=== PATIENT | male | born 1970 | race Caucasian/White ===

== ENCOUNTER 2024-07-15 08:51 | Outpatient (CLI) | payer OTHER, SELFPAY ==
--- NOTE | 2024-07-15 09:03 | XR_ITS ---
WS: [id number] XR shoulder LT min 2V* [id number] REASON FOR EXAM: PAIN IN LEFT SHOULDER FINDINGS: No fracture or focal bone lesion. Mild narrowing of the acromioclavicular joint space with significant superior marginal osteophytosis. The glenohumeral joint space is not well demonstrated but likely has moderate to significant narrowing. There is moderate subchondral sclerosis and osteophytosis of the glenoid. No significant abnormality in the greater biceps tuberosity or humeral head. XR/XR shoulder LT min 2V* [id number] IMPRESSION: Moderate to significant osteoarthritis in the acromioclavicular joint and gleno humeral joint.
== END 2024-07-15 08:52 | disposition home or self-care (01) ==
PROVIDERS: Family Provider Family Medicine; PCP Family Medicine; Visit Provider Family Medicine
DX: M19.012 Primary osteoarthritis, left shoulder (principal); M25.712 Osteophyte, left shoulder
CPT/HCPCS: 73030

== ENCOUNTER → 2024-08-12 11:52 | Outpatient (BNVA) | payer OTHER, SELFPAY | PROVIDERS: Family Provider Family Medicine; PCP Family Medicine; Visit Provider Nurse Practitioner | DX: M19.012 Primary osteoarthritis, left shoulder (principal); M54.12 Radiculopathy, cervical region; M75.102 Unspecified rotator cuff tear or rupture of left shoulder, not specified as traumatic | CPT/HCPCS: 73030 ==

== ENCOUNTER 2024-08-23 18:02 | Emergency (ER) | payer OTHER, SELFPAY ==
[2024-08-23 18:07] VITALS: BP 133/88; PULSE 86; RESP 16; TEMP 36.6; O2SAT 99
--- NOTE | 2024-08-23 20:01 | CTR_ITS ---
PROCEDURE INFORMATION: Exam: CT Cervical Spine Without Contrast Exam date and time: 08/23/2024 8:14 PM Age: 54 years old Clinical indication: Neck pain; Additional info: Radiculopathy, painful neck movt TECHNIQUE: Imaging protocol: Computed tomography of the cervical spine without contrast. Radiation optimization: All CT scans at this facility use at least one of these dose optimization techniques: automated exposure control; mA and/or kV adjustment per patient size (includes targeted exams where dose is matched to clinical indication); or iterative reconstruction. COMPARISON: CR XR shoulder LT min 2V* [id number] 08/12/2024 11:54 AM RADIATION DOSE METRICS: Total DLP (mGy-cm): 161.57 FINDINGS: Bones: Vertebral body spurring can be seen at multiple levels. There is a prominent central disc herniation at the C4-C5 level. No other definite spinal stenosis noted. No fracture or subluxation. Lungs: Lung apices are normal. Soft tissues: Unremarkable. CT/CT cervical spin wo con* [id number] IMPRESSION: 1. Central disc herniation at C4-C5 2. Multilevel arthritic changes
[2024-08-23] MEDS: ketorolac 30 mg/mL INJ IM (20:20)
--- NOTE | 2024-08-23 20:24 | W.ED.NECK ---
HPI - Neck Pain/Injury General: Chief Complaint: Neck Pain/Injury Stated Complaint: neck pain Time Seen by Provider: 08/23/24 19:30 Source: patient Mode of arrival: ambulatory Limitations: no limitations History of Present Illness: 54yo male presents with significant other for evaluation of neck pain that has been ongoing for the past several months. Patient reports the pain radiates from the back of his neck through his shoulder blade area and down the left arm. States that it radiates to the fingers. Reports that he now has difficulty moving his neck due to the pain. Patient states that he was seen by his primary care who put a referral in for his shoulder, but not for his neck. He did see orthopedics for the shoulder, but no one for his neck. States he went to [facility] last night where he received a shot of Toradol and morphine. States the doctor stated that he needed an MRI, but they were not able to complete an MRI. Patient states that he is no longer able to work or drive due to his limited movement. He denies previous imaging of the cervical spine, previous neck or back surgeries, recent trauma. Related Data Home Medications ?Medication ?Instructions ?Recorded ?Confirmed atorvastatin 10 mg tablet (Lipitor) 10 mg PO DAILY 08/12/24 08/12/24 metformin 500 mg/5 mL oral solution 500 mg PO BID 08/12/24 08/12/24 Previous Rx's ?Medication ?Instructions ?Recorded celecoxib 100 mg capsule (Celebrex) 100 mg PO BID #90 caps 08/12/24 Allergies Allergy/AdvReac Type Severity Reaction Status Date / Time No Known Allergies Allergy Unverified 08/12/24 12:00 Review of Systems Const: Denies: fever(s), chills or body aches Card: Denies: chest pain Resp: Denies: dyspnea Musc: Reports: neck pain (left sided) PFS ED PFSH: Medical History (Updated 08/23/24 @ 21:02 by EKATERINA Page) Cervical radiculopathy Osteoarthritis of left acromioclavicular joint Rotator cuff tear arthropathy of left shoulder Primary osteoarthritis, left shoulder Social History Smoking and tobacco/nicotine status: former use of tobacco/nicotine Physical Exam Const: COMMON NORMALS: no acute distress, patient oriented x3 and alert GENERAL APPEARANCE: cooperative ORIENTATION/CONSCIOUSNESS: Yes awake OTHER: Patient is sitting upright in a vertical flow recliner in no acute distress. He is able to give history with assistance from significant other. He is interactive with exam appropriately. HENMT: COMMON NORMALS: normocephalic and atraumatic HEAD & SCALP: normocephalic and atraumatic Neck/C-Spine: COMMON NORMALS: no meningeal signs CERVICAL SPINE: Yes pain with cervical ROM, No Cervical spine tenderness, No step off deformity, Yes Paracervical muscle tenderness left and Yes Trapezius muscle tenderness left NECK IMAGES:  1. tenderness to palpation Chest: CHEST: Yes Symmetrical chest wall rise Resp: COMMON NORMALS: normal respiratory effort EFFORT & INSPECTION: Yes able to speak in complete sentences Extremity: COMMON NORMALS: full ROM Neuro: COMMON NORMALS: patient oriented x3 SENSORIUM/ORIENTATION: Yes alert MENINGEAL SIGNS: Yes no meningeal signs Psych: ATTITUDE: Yes calm Course Vital Signs: Vital signs: Vital Signs Temperature 97.9 F 08/23/24 18:07 Pulse Rate 86 08/23/24 18:07 Respiratory Rate 16 08/23/24 18:07 Blood Pressure 133/88 08/23/24 18:07 Pulse Oximetry 99 08/23/24 18:07 Oxygen Delivery Me thod Room Air 08/23/24 18:07 MDM - Neck Pain/Injury Medical Decision Making 54yo male presents with significant other for evaluation of neck pain that has been ongoing for the past several months. Patient reports the pain radiates from the back of his neck through his shoulder blade area and down the left arm. States that it radiates to the fingers. Reports that he now has difficulty moving his neck due to the pain. Patient states that he was seen by his primary care who put a referral in for his shoulder, but not for his neck. He did see orthopedics for the shoulder, but no one for his neck. Patient denies previous neck or back surgery, previous imaging of the neck, and recent trauma. Patient is nontoxic in appearance. Vital signs are stable. Patient received ketorolac, but declined orphenadrine. CT scan cervical spine reveals central disc herniation C4-C5 as well as multilevel arthritis. Discussed these findings with patient and significant other. Discussed that he would likely need to follow-up with neurosurgery for treatment of the herniated disc. Patient does wish to go to [facility] and plans to call them to schedule his own appointment. Recommend patient continue with his previously prescribed steroid Dosepak and baclofen. Advised he call primary care with an update of his diagnosis and to discuss a possible recheck. Return precautions provided. Patient and significant other state understanding and have no further questions or concerns at this time. Differential Diagnosis Likely disc disorder of cervical region, cervical radiculopathy, torticollis and strain of neck muscle Medical Records I reviewed the patient's medical records. Lab Data Radiology Impressions Cervical Spine CT 08/23/24 20:01 IMPRESSION: 1. Central disc herniation at C4-C5 2. Multilevel arthritic changes All radiology interpretation(s) finalized by discharge Discharge Plan Discharge Patient Disposition: Home Clinical Impression: Cervical disc herniation, Cervical arthritis Condition: Stable Prescriptions: No Action atorvastatin [Lipitor] 10 mg tablet 10 mg PO DAILY metformin 500 mg/5 mL solution 500 mg PO BID celecoxib [Celebrex] 100 mg capsule 100 mg PO BID Qty: 90 0RF Discharge Orders: Discharge ED (Routine); Ordered 08/23/24 Ordered By: Cristhian Toussaint Referrals: Ezequiel Mendez MD [Primary Care Provider, Family Practice] Discharge Diet: Usual diet Discharge Activity: Increase activity as tolerated Patient Instructions: Cervical Disc Herniation (ED), Pain Management Activity Restrictions/Additional Instructions: The CT scan does show a disc herniation at C4-C5 as well as multilevel arthritic changes You may use your previously prescribed steroids as well as baclofen to help with the discomfort You will need to follow-up with neurosurgery for further treatment. If outside of the [facility], you will need to call to make the appointment You may also wish to follow-up with primary care, call with an update of diagnosis and to discuss further treatment Return to the emergency department if any rapid worsening symptoms and as needed Print Language: Bruneian Coding Level of Care Code ED Narcotics And/Or Vice Detective for Ladi Smith
== END 2024-08-23 20:58 | disposition home or self-care (01) ==
PROVIDERS: Emergency Provider Nurse Practitioner; PCP Family Medicine
DX: M50.221 Other cervical disc displacement at C4-C5 level (principal); M47.812 Spondylosis without myelopathy or radiculopathy, cervical region; Z79.84 Long term (current) use of oral hypoglycemic drugs; Z87.891 Personal history of nicotine dependence
CPT/HCPCS: 72125; 96372; 99284; J1885